=== PATIENT | male | born 1960 | race Caucasian/White ===

== ENCOUNTER 2021-05-01 20:43 | Emergency (ER) | payer OTHER ==
[2021-05-01 21:54] VITALS: BP 159/75; PULSE 71; RESP 16; TEMP 97.7
[2021-05-01] MEDS ORDERED: BACLOFEN 10 MG TAB PO STA (22:51)
--- NOTE | 2021-05-01 22:54 | ED ---
General Adult HPI - General Chief complaint: Abdominal Pain Stated complaint: Pelvic pain Time Seen by Provider: 05/01/21 22:04 Source: patient, RN notes reviewed Mode of arrival: ambulatory Limitations: no limitations - History of Present Illness Initial comments: This is a 60-year-old male who comes the ER stating that he went to climb up in his equipment Cab and his hernia palpable. Patient is complaining of pain in the right inguinal area. However, he states there was no bulging to the area. He complains of no abdominal pain. No testicular pain. No penile pain. No difficulty with urination or bowel movements. Patient states she was previously diagnosed with a inguinal hernia on that side and has elected not to have anything done. Patient did see a surgeon. Patient denies any nausea or vomiting. No headache, no fever or chills, no changes in vision or hearing, no sore throat or difficulty with speech, no neck pain, no chest pain or shortness of breath, no abdominal pain, no nausea or vomiting, no changes in urination or bowel movements, no numbness or tingling, no extremity pain, no skin rashes or lesio ns. - Related Data Home Medications Medication Instructions Recorded Confirmed Cinnamon Bark [Cinnamon] 500 mg PO DAILY 07/01/15 08/29/15 Previous Rx's Medication Instructions Recorded HYDROcodone/APAP 7.5-325MG [[place] 1 tab PO Q6HR PRN #20 tab 07/01/15 7.5-325] Hydrocodone/Acetaminophen [[place] 1 each PO Q6HR PRN #10 tab 08/29/15 5-325] Baclofen 10 mg PO TID PRN #15 tab 05/01/21 Allergies Allergy/AdvReac Type Severity Reaction Status Date / Time acetaminophen [From Tylenol] AdvReac Nausea & Verified 05/01/21 21:55 Vomiting ibuprofen [From Motrin] AdvReac Nausea & Verified 05/01/21 21:55 Vomiting Review of Systems ROS Statement: Those systems with pertinent positive or pertinent negative responses have been documented in the HPI. ROS Other: All systems not noted in ROS Statement are negative. Past Medical History Past Medical History: Rheumatoid Arthritis (RA), Thyroid Disorder Additional Past Medical History / Comment(s): chronic back pain History of Any Multi-Drug Resistant Organisms: None Reported Past Surgical History: No Surgical Hx Reported Additional Past Surgical History / Comment(s): thyroidectomy Past Psychological History: No Psychological Hx Reported Past Alcohol Use History: None Reported Past Drug Use History: None Reported General Exam - General Exam Comments Initial Comments: Healthy-appearing 60-year-old male presents to the emergency department does not appear to be ill or toxic. Abdomen is soft. Cranial nerves II through XII intact Limitations: no limitations General appearance: alert, in no apparent distress Head exam: Present: atraumatic, normocephalic, normal inspection Eye exam: Present: normal appearance, PERRL, EOMI. Absent: scleral icterus, conjunctival injection, periorbital swelling ENT exam: Present: normal exam, mucous membranes moist Neck exam: Present: normal inspection. Absent: tenderness, meningismus, lymphadenopathy Respiratory exam: Present: normal lung sounds bilaterally. Absent: respiratory distress, wheezes, rales, rhonchi, stridor Cardiovascular Exam: Present: regular rate, normal rhythm, normal heart sounds. Absent: systolic murmur, diastolic murmur, rubs, gallop, clicks GI/Abdominal exam: Present: soft, normal bowel sounds, other (Patient has no evidence of incarcerated hernia. Minimally tender over the left inguinal ligament with no evidence of mass or hernia. No scrotal abnormality. Hernia testing reveals no inguinal ring tenderness or weakness. No evidence of testicular torsion. Cremasteric reflexes intact. No rashes). Absent: distended, tenderness, guarding, rebound, rigid, diminished bowel sounds, hyperactive bowel sounds, hypoactive bowel sounds, organomegaly, mass, bruit, pulsatile mass, hernia exam: Present: normal inspection, circumcision. Absent: testicular tenderness, urethral discharge, scrotal swelling Extremities exam: Present: normal inspection, full ROM, normal capillary refill. Absent: tenderness, pedal edema, joint swelling, calf tenderness Back exam: Present: normal inspection Neurological exam: Present: alert, oriented X3, CN II-XII intact Psychiatric exam: Present: normal affect, normal mood Skin exam: Present: warm, dry, intact, normal color. Absent: rash Course Vital Signs 05/01/21 21:49 Temperature 97.7 F Pulse Rate 71 Respiratory 16 Rate Blood Pressure 159/75 O2 Sat by Pulse 98 Oximetry Medical Decision Making - Medical Decision Making Patient asking for narcotic pain medication for left inguinal hernia which is not evident on physical examination. I suspect the patient's symptomatology is related to a inguinal muscle strain. There is no evidence of infectious process. Abdomen soft. I did discuss treatment for reducible hernias with the patient to include fiber supplementation, avoidance of narcotics. Patient also told me he is going back to work. I told him I would give him baclofen for pain as she is ALLERGIC to acetaminophen and ibuprofen. I also told not ivory machines or drive vehicles while taking this medication. Patient voiced understanding. I'm reluctant to give the patient controlled substances for this injury as I normally would not do that. Also I would avoid any medication which will cause constipation. Patient states she also cannot take time off work. Patient was given follow-up with the on-call surgeon of course she can go back to the surgeon that he is seen previously. I advised activity limitations. Discussed return parameters for worsening symptomology. Patient was told to return to the ER for any signs or symptoms worsen. Told to return immediately if any other problems arise. All questions answered. Treatment plan discussed. Patient in agreement Every effort has been made to ensure accuracy of this dictation. However, due to the limitations of electronic medical records and dictation devices, errors in charting still occur. Disposition Clinical Impression: Strain of left inguinal muscle Disposition: HOME SELF-CARE Condition: Good Instructions (If sedation given, give patient instructions): Groin Strain (ED) Additional Instructions: Limit activity, limit bending, twisting, lifting. Apply ice 20 minutes on and off for times per day. You can take the muscle relaxer which also works for pain as directed. Follow-up with your regular doctor. Do not drive vehicles or operating machinery while taking the medication. Follow-up with your regular physician as directed. Return to the ER immediately if any symptoms worsen, new symptoms arise, or any other problems develop. Prescriptions: Baclofen 10 mg PO TID PRN #15 tab PRN Reason: Pain Is patient prescribed a controlled substance at d/c from ED?: No Referrals: Cash Dave MD [STAFF PHYSICIAN] - 1-2 days Time of Disposition: 22:54
--- NOTE | 2021-05-01 22:58 | XR ---
EXAMINATION TYPE: XR abdomen 2V DATE OF EXAM: 05/01/2021 COMPARISON: NONE HISTORY: Abdominal pain TECHNIQUE: 3 views FINDINGS: Supine and upright views show no sign of intestinal obstruction or pneumoperitoneum. Fecal pattern is normal. There is no evidence of a mass. Lung bases are clear. There are no pathologic calc ifications. IMPRESSION: Nonacute abdomen.
== END 2021-05-01 23:16 | disposition home or self-care (01) ==
LOC: EC 20:43
DX: S39.013A Strain of muscle, fascia and tendon of pelvis, initial encounter (principal); M06.9 Rheumatoid arthritis, unspecified; E07.9 Disorder of thyroid, unspecified; Z88.6 Allergy status to analgesic agent; X50.0XXA Overexertion from strenuous movement or load, initial encounter
CPT/HCPCS: 74019; 99284